=== PATIENT | male | born 2000 | race Caucasian/White ===

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

== ENCOUNTER 2024-03-07 02:19 | Day surgery (SDC) | payer OTHER, SELFPAY ==
[2024-03-01 11:53] VITALS: BMI 23.8
--- NOTE | 2024-03-01 11:59 | PC.NURSE ---
Addendum entered by Jeffry Ferrell RN 03/01/24 12:06: Patient was told nothing to eat or drink after midnight. Original Note: Report to the Outpatient Waiting Room, entrance under the green pavilion located off [facility], at time _1000_ on date _[id number]_. Planned Procedure Time: _1200_.? Time changes happen often and if your time is changed the preop area will call you the afternoon before. - You and your visitor will be asked to self-screen and do not enter if you have any COVID symptoms. Please call surgeon if you need to reschedule. - A mask is optional within the hospital at this time. Patients may have clear liquids (water, carbonated beverages, clear teas, apple juice) until 3 hours prior to surgery with a maximum of 20 ounces. - No food from midnight until time of surgery and no smoking Take only the following medications with a SIP of water on the morning of surgery: ___None DO NOT STOP ANY OF YOUR OTHER PRESCRIPTION MEDICATIONS PRIOR TO SURGERY EXCEPT THE FOLLOWING Medications to discontinue per physician None Please no make-up, nail luxembourgish, hairspray, perfume, deodorant, or body powder the day of surgery.? No jewelry (including any body piercings) or valuables the day of surgery, leave them at home.? Please take a shower or bath the night before, or the morning of, surgery with an antibacterial soap.? Wear comfortable, loose fitting clothing.? - Jewelry must be removed prior to entering the operating room.? Rings and piercings that are not removed may be cut off. - The hospital will not accept responsibility for valuables.? - Please leave all valuables, including medications, at home the day of surgery. If you are going home after surgery, a licensed emergency vehicle driver must drive you home.? - NO public transportation without another adult if you receive anesthesia. - We recommend that an adult stay with you for 24 hours following discharge. - We also recommend that you do not drive, make important decision, drink alcoholic beverages, or take any drugs that were not prescribed by your health care provider for at least 24 hours after your discharge time. Follow any additional instructions given to you from your surgeon. Telephone instructions given to __Edelmiraan___and asked if any additional questions and then verbalized understanding. Patient advised to call surgeon office or pre surgery nurse liaison [phone] if any additional questions.
[2024-03-07] VITALS (8 sets, daily range): BP systolic 122–138; BP diastolic 67–90; PULSE 52–75; RESP 12–20; TEMP 36.2–36.3; O2SAT 99–100
[2024-03-07] MEDS: ACETAMINOPHEN 500 MG TABLET 1000 MG PO (10:45)
[2024-03-07] MEDS: KETOROLAC 15 MG/ML VIAL (*BKC) IV PUSH (10:45)
[2024-03-07] MEDS: LACTATED RINGERS 1,000 ML 30 ML IV CONT (11:00)
--- NOTE | 2024-03-07 11:33 | P.PNAN_ITS ---
Anes - Initial Pre Proc Eval Procedure: Operation Date: 03/07/24 12:00 Proposed Procedures p Rectal Examination Under Anesthesia,Possible Excision Pilonidal Cyst, Possible Anal Fistulotomy - Ayden Main DO Date/Time: 03/07/24 11:33 Surgeon: Ayden Main DO Pre Op Diagnosis: pilonidal cyst Patient Data Age: 23 Gender: M Height: 1.91 m Weight: 87.1 kg Last Vital Signs Temp 36.3 C L 03/07/24 10:45 Pulse 59 L 03/07/24 10:45 Resp 14 03/07/24 10:45 BP 128/67 03/07/24 10:45 Pulse Ox 99 03/07/24 10:45 O2 Del Method Room Air 03/07/24 10:45 Allergies Allergy/AdvReac Type Severity Reaction Status Date / Time Sulfa (Sulfonamide Allergy Mild Rash Verified 03/07/24 11:03 Antibiotics) Home Medications Medication Instructions Recorded Confirmed Type No Home Medications 01/22/24 03/01/24 History Patient hx anesthesia problems: none Family hx anesthesia problems: none Results Review: All pre-operative results and documents have been reviewed as part of the pre- operative evaluation. [facility] Social History Social History Smoking status: Never smoker Second hand tobacco smoke exposure: No Alcohol intake: current Drinks per week: 10 Substance use: never Substance use type: does not use Living arrangements: with family Occupation/Education: student Gender identity (if verbalized by the patient): Male Spiritual care concerns: No Anes - Eval Final PreProcedure Day of Procedure 03/07/24 11:33 Patient weight: normal Heart: regular rate and rhythm Lungs: clear to auscultation Airway: Mallampati scale class II Neurological: alert and oriented Last oral intake: >/= 8 hours ASA classification: I Emergent: no Anesthetic plan: proceed Anesthesia type and monitoring: general ETT and standard monitoring Results Review: All pre-operative results and documents have been reviewed as part of the pre- operative evaluation. Informed Consent: The patient's anesthetic plan and its attendant risks and benefits were discussed with the patient/family/POA. Questions were solicited and answers provided to the satisfaction of the patient/family/POA.
--- NOTE | 2024-03-07 12:01 | PM.IMHP ---
H&P: HPI History of Present Illness Date/Time: 03/07/24 12:01 Chief Complaint: Perianal wound Narrative: 23 yo man presents for rectal exam under anesthesia with possible pilonidal cystectomy vs fistulotomy. He reports no changes since last seen in office. Review of Systems Review of Systems: All systems reviewed & are unremarkable except as noted in HPI and below Constitutional: Constitutional: Denies chills, Denies fever(s), Denies headache(s) and Denies weight loss Eyes: Eyes: Denies change in vision ENT: Denies dizziness, Denies headache(s), Denies neck mass and Denies throat swelling Cardiovascular: Cardiovascular: Denies chest pain, Denies lightheadedness and Denies dyspnea Respiratory: Respiratory: Denies cough, Denies dyspnea and Denies wheezing Gastrointestinal: Gastrointestinal: Denies abdominal pain, Denies change in bowel habits, Denies nausea and Denies vomiting Genitourinary: Genitourinary: Denies hematuria and Denies dysuria Musculoskeletal: Musculoskeletal: Reports as per HPI Integumentary/Breasts: Skin/Breast: Reports as per HPI Neurologic: Denies dizziness and Denies headache(s) Allergic/Immunologic: Allergic/Immunologic: Denies throat swelling and Denies wheezing PMF Social History Social History Smoking status: Never smoker Second hand tobacco smoke exposure: No Alcohol intake: current Drinks per week: 10 Substance use: never Substance use type: does not use Living arrangements: with family Occupation/Education: student Gender identity (if verbalized by the patient): Male Spiritual care concerns: No Meds Home Medications and Allergies Home Medications Medication Instructions Recorded Confirmed Type No Home Medications 01/22/24 03/01/24 History Allergies Allergy/AdvReac Type Severity Reaction Status Date / Time Sulfa (Sulfonamide Allergy Mild Rash Verified 03/07/24 11:03 Antibiotics) Vital Signs Vital Signs - 24 hr 03/07/24 10:45 Temperature 97.3 F L Pulse Rate 59 L Respiratory Rate 14 Blood Pressure 128/67 Pulse Oximetry 99 Oxygen Delivery Room Air Exam Const: General: no acute distress and alert Orientation/consciousness: patient oriented x3 HENMT: Head: normocephalic and atraumatic Ears: hearing grossly normal bilaterally Face/Nose/Sinus: Normal nares present Mouth: Yes Normal oral and palatal mucosa present Eyes: Periorbital: periorbital findings normal Sclera: sclerae normal EOM: EOMs intact bilaterally Neck: Neck: normal visual inspection, no lymphadenopathy and trachea midline Chest: Chest palpation & inspection: normal inspection of the chest Resp: Effort & Inspection: normal respiratory effort Auscultation: clear to auscultation bilaterally Cardio: Jugular venous distension: no JVD Rate: regular rate Rhythm: regular rhythm Heart sounds: S1 normal heart sound present and S2 normal heart sound present Peripheral pulses: Peripheral pulses 2+ throughout GI: Inspection: normal to inspection GI Palp: Yes Soft to palpation, No Tenderness to palpation present (GI), No Guarding due to palpation present (GI) and No Rebound tenderness present Percussion: Yes normal to percussion Auscultation: normal bowel sounds : General: Yes no CVA tenderness Back/Spine/Pelvis: Back: no CVA tenderness Other: small wound in midline intergluteal cleft just inferior to the tip of the coccyx. Neuro: General: patient oriented x3, no focal motor deficits and CN's II-XI intact bilaterally Cognition (Neuro): normal cognition Speech: normal speech Motor exam (neuro): 5/5 motor strength present throughout Extrem: General: capillary refill normal and no clubbing, cyanosis or edema Assessment and Plan Assessment and plan (1) Pilonidal cyst: Code(s): L05.91 - Pilonidal cyst without abscess Status: Acute Assessment and Plan: I have recommended r
--- NOTE | 2024-03-07 12:03 | WPDHPUPDATE1 ---
History and Physical Update Update Date/Time: 03/07/24 12:03 History and Physical has been reviewed, including an updated exam of the patient. There are NO changes in the patient's condition. Risks, benefits, and alternatives have been discussed and questions answered. Patient agrees to proceed with procedure.
[2024-03-07] MEDS: HYDROGEN PEROXIDE 3% SOLN(*SP) 473 ML BOTTLE 237 ML IRRIGATION (12:10)
[2024-03-07] MEDS: BUPivacaine HCL 0.5% 10 ML AMP 30 ML INFILTRATE (12:10)
[2024-03-07] MEDS: ceFAZolin 2 GM/D5W 50 ML 2 GM/50 ML BAG IVPB (12:18)
--- NOTE | 2024-03-07 13:03 | W.PM.PROC2 ---
Procedure Note - Detailed Date of Procedure 03/07/24 Pre-op Diagnosis pilonidal cyst Post-op Diagnosis Other (Posterior midline intersphincteric anal fistula) Procedure Performed Rectal exam under anesthesia with intersphincteric anal fistulotomy Surgeon Ayden Main, DO Anesthesia General and Local (0.5% bupivacaine w epi) Indications This is a 23-year-old man who presented with intermittent drainage from a wound in his intergluteal cleft. He had noticed this for a couple years and intermittently has to squeeze it to drain it himself. He denies a prior history of a large abscess. On exam this wound was located inferior to the tip of his coccyx and was about 4 cm away from the anal verge. He had no other findings on the surface of the sacrum. Discussed with patient that this could possibly be a pilonidal cyst but could also be an anal fistula. Discussions were made with the patient about treatment options and decision was made to proceed with rectal exam under anesthesia with possible excision of pilonidal cyst, possible anal fistulotomy. Findings Rectal exam under anesthesia was performed. The patient was found to have a midline intergluteal cleft wound measuring about 3 mm located about 4 cm from the anal verge. This was probed with a small lacrimal probe and the tract appeared to direct in the posterior midline perianal region. I was able to identify a posterior midline opening within the anal canal communicating to this tract. This appeared to be a shallow intersphincteric anal fistula. A fistulotomy was performed over this region. No other anorectal abnormalities were identified. Description of Procedure Procedure as well as risks, benefits, and alternatives were discussed with the patient. Written consent was obtained and placed in chart prior to procedure. Patient was brought back to surgical suite. He was placed supine on the hospital stretcher. Time-out was done to confirm patient and procedure. He was then intubated by the anesthesia department. He was then repositioned into prone shailesh-knife position on the operating table. His perirectal region was prepped and draped in sterile fashion using Betadine prep. I initially identified the wound in the posterior midline between the patient's coccyx and anus. The wound was probed with a small lacrimal probe and this appeared to be directing towards the anus and not towards the presacral region. I inserted a medium Hill-Hackett anoscope in carefully inspected the anal rectal canal. This appeared to be likely an anal fistula. I was able to gently probe the area further and it appeared to be going towards the posterior midline anal canal. I did inject some hydrogen peroxide with a 24 gauge Angiocath and a scant amount of peroxide was identified draining into the midline posterior anal canal. I was able to continue probing this tract with the lacrimal probe and identify the internal opening in the anal canal. This appeared to be relatively shallow and only encompassed a few sphincteric muscle fibers. The area around this tract was anesthetized with 0.5% bupivacaine with epinephrine. I then made an incision over this tract using a 15 blade scalpel. Electrocautery was then used for hemostasis and for dissection through the subcutaneous tissue until the tract was opened up completely. The chronic granulation tissue was cauterized to help with healing. One final inspection was made around the area no other abnormalities were identified. The area was irrigated with sterile saline. Xeroform gauze was then applied followed by fluff gauze, ABD pad, and mesh underwear. The patient was then awakened from anesthesia, extubated, and transferred to recovery. Estimated Blood Loss 5 Complications No immediate complications Condition Stable Disposition Same day [facility] Billing Surgery - Charge Forward: Surgery Billing
--- NOTE | 2024-03-10 14:34 | PC.NURSE ---
office of Dr Main called to state MOM is requesting anesthesia call to discuss patient having split uluva, message with mom's phone number given to anesthesia membership secretary Shila to have provider call MOM Jud [phone]
== END 2024-03-07 14:29 | disposition home or self-care (01) ==
PROVIDERS: PCP Family Medicine Adolescent Medicine; Visit Provider Surgery
PROC: (CPT 46275; principal; 2024-03-07 12:00)
DX: L05.91 Pilonidal cyst without abscess (principal)
CPT/HCPCS: 46275; A9270; J0690; J1100; J1885; J2250; J2405; J2704; J3010; J7120

== ENCOUNTER 2024-08-19 07:50 | Outpatient (RCR) | payer OTHER, SELFPAY ==
[2024-08-19 09:56] VITALS: BMI 23.9
--- NOTE | 2024-08-19 12:00 | P.PNWOUND_ITS ---
Wound Care Note Date/Time: 08/19/24 12:30 History: Patient is s/p posterior midline anal fistulotomy 03/07/2024. He has been healing well but continues to have a wound opening that is not completely healed. He as applying silver gel but continued to have mild bleeding. There has not been any sign of infection to the wound. Over the past few weeks, he has noted some improvement with keeping it dry and trying to avoid too much strenuous activity. Wound approximation: No Wound width: 0.3 cm Wound length: 0.4 cm Wound depth: 0.2 cm Drainage: serosanguinous Surrounding tissue appearance: healthy Tunneling: none Percentage granulation tissue: 100% Assessment and Plan Assessment and plan (1) Anal fistula: Code(s): K60.3 - Anal fistula Status: Acute Assessment and Plan: * Will initiate antifungal cream application to prevent yeast production. Area shaved around the wounds to prevent hair ingrowth into the area. Continue current treatment and follow up in office in 1 month for wound check. Review of Systems Review of Systems: All systems reviewed & are unremarkable except as noted in HPI and below Exam GI: Other: Along posterior midline perirectal area, there are couple small superficial wound openings with red granulation tissue. No tunneling or surrounding erythema.
== END 2024-11-08 07:27 | disposition home or self-care (01) ==
LOC: ANHWOC 07:50
PROVIDERS: PCP Family Medicine Adolescent Medicine; Visit Provider Surgery
DX: K60.30 Anal fistula, unspecified (principal); Z48.00 Encounter for change or removal of nonsurgical wound dressing
CPT/HCPCS: 99213; G0463